=== PATIENT | female | born 1970 | race Caucasian/White ===

== ENCOUNTER → 2024-04-16 | Outpatient (CLI) | payer BC ==
[2024-04-17 12:52] LABS: IgG Subclass 1 566.4 mg/dL (382.40-928.60); IgG Subclass 2 471.1 mg/dL (241.80-700.30); IgG Subclass 3 60.8 mg/dL (21.82-176.00); IgG Subclass 4 32.2 mg/dL (3.92-86.40)
== END | disposition home or self-care (01) ==
LOC: LABWHC1 15:05
PROVIDERS: ATTEND Internal Medicine Critical Care Medicine
DX: R05.9 Cough, unspecified (principal)
CPT/HCPCS: 36415; 82787